=== PATIENT | female | born 1955 | race Caucasian/White ===

== ENCOUNTER 2016-08-18 15:30 | Emergency (ER) | payer OTHER | END 2016-08-18 16:37 | disposition home or self-care (01) | DX: S63.501A Unspecified sprain of right wrist, initial encounter (principal); W19.XXXA Unspecified fall, initial encounter ==

== ENCOUNTER 2019-01-18 07:20 | Day surgery (SDC) | payer OTHER ==
[2019-01-18] MEDS ORDERED: LACTATED RINGERS 1,000 ML IV ONE ×2 (07:30)
[2019-01-18] MEDS ORDERED: MIDAZOLAM 2 MG/2 ML VIAL IVP ONE (09:28)
[2019-01-18] MEDS ORDERED: fentaNYL 250 MCG/5 ML VIAL IVP ONE (09:28)
[2019-01-18 10:36] VITALS: BP 137/84
== END 2019-01-18 07:21 | disposition home or self-care (01) ==
LOC: SDS 07:20
PROVIDERS: ATTEND Surgery
PROC: 0DJD8ZZ Inspection of Lower Intestinal Tract, Via Natural or Artificial Opening Endoscopic (ICD-10-PCS; principal; 2019-01-18 09:30)
DX: Z12.11 Encounter for screening for malignant neoplasm of colon (principal); K64.8 Other hemorrhoids; I12.9 Hypertensive chronic kidney disease with stage 1 through stage 4 chronic kidney disease, or unspecified chronic kidney disease; N18.9 Chronic kidney disease, unspecified; E66.9 Obesity, unspecified; Z68.38 Body mass index [BMI] 38.0-38.9, adult; Z98.84 Bariatric surgery status
CPT/HCPCS: 45378; J3010; J7120